=== PATIENT | female | born 1965 | race Caucasian/White ===

== ENCOUNTER → 2019-12-27 | Outpatient (CLI) | payer OTHER ==
[~2019-12-27] MED LIST: ASPIR 8181 M1 PO; CARDIZEM SR 60M60 MG PO; LIPITOR 20 MG T20 M1 PO
== END ==
LOC: SJCVCIMAG 10:18
DX: I65.23 Occlusion and stenosis of bilateral carotid arteries (principal); K55.1 Chronic vascular disorders of intestine; I70.90 Unspecified atherosclerosis; I71.4 Abdominal aortic aneurysm, without rupture; I10 Essential (primary) hypertension; J44.9 Chronic obstructive pulmonary disease, unspecified; F17.200 Nicotine dependence, unspecified, uncomplicated

== ENCOUNTER → 2020-01-04 | Outpatient (CLI) | payer OTHER ==
[~2020-01-04] VITALS: Ht 149.9 cm; Wt 41.8 kg
[2020-01-04 07:52] VITALS: BP 157/93
[2020-01-04 08:00] LABS: HEMATOCRIT 42.1 % (37.0-47.0); HEMOGLOBIN 14.2 gm/dL (12.0-15.0); MCH 30.5 pg (26.0-34.0); MCHC 33.7 g/dL (28.0-37.0); MCV 90.5 fL (80.0-100.0); RBC 4.65 mil/uL (4.20-5.00); RDW 13.1 % (10.5-14.5); WBC 7.9 thou/uL (4.0-11.0)
[2020-01-04 08:05] LABS: CALCIUM 9.5 mg/dL (8.5-10.1); CREATININE 0.9 mg/dL (0.6-1.0); POTASSIUM 4.6 mmol/L (3.5-5.1)
--- NOTE | 2020-01-04 08:57 | EKG ---
[facility] [place] [address] ELECTROCARDIOGRAM REPORT Name: MANUEL LARA Room #: REG [facility]#: [id number] Admission: 01/04/20 Attend Phys: Fran Ramirez MD, Discharge: Date of : 63 Report #: [id number] THIS REPORT FOR: cc: FREIDA - Vianca family physician/PCP FAM - No family physician/PCP Lasha Chavarria MD [facility] ~ THIS REPORT FOR: //name// [facility] Test Date: 2020-01-04 Test Time: 07:58:57 Pat Name: MANUEL LARA Department: Room: Gender: Pig Caster: Marizol COOPER : 1965 Requested By: Fran Ramirez Order Number: [id number] MD: Lasha Chavarria Measurements Intervals [place] Rate: 68 P: 87 OK: 147 QRS: 78 QRSD: 83 T: 75 QT: 393 QTc: 418 Interpretive Statements Sinus rhythm Normal tracing No previous ECG available for comparison Electronically Signed On 01-04-2020 8:56:15 CDT by Lasha Chavarria [email or web address] <ELECTRONICALLY SIGNED> By: Lasha Chavarria MD, FAC 01/04/20 [id number] Lasha Chavarria MD, [facility] /EPI
--- NOTE | 2020-01-04 11:23 | CATHLAB ---
[facility] [place] [address] INVASIVE PROCEDURE REPORT Name: MANUEL LARA [id number] Admission: 01/04/20 Attend Phys: Fran Ramirez MD, Discharge: Date of : 63 Report #: [id number] THIS REPORT FOR: cc: FAM - No family physician/PCP FAM - No family physician/PCP Fran Ramirez MD [facility] ~ APPROVED REPORT Study performed: 01/04/2020 09:09:09 Patient Details The patient is a 54 year-old female Event Personnel Fran Ramirez Advertising Inserter, Anjana Dee RN RN, Garima Brock RTR, Frantz Bonilla Roberta Monitor Procedures Performed Art Access - R femoral artery* Left Heart Cath w/or w/o Coronaries [id number] [facility] Renal Bilateral Peripheral Angiography [id number] CVRENALBIL Aortogram Abdominal Peripheral Angio 582606 Hemostasis w/ Mynx 40639 Initial Mod Sed Same Phys/QHP Gr5y [id number] 72461 Mod Sed Same Phys/QHP Ea 933104 Indication Chest pain Procedure Narrative The Right Groin^ was infiltrated with 1% Lidocaine subcutaneous anesthesia. A PINNACLE 6FR Sheath #[id number] sheath was inserted into the RFA 6F^. Coronary angiography was performed using coronary diagnostic catheters. The right coronary system was accessed and visualized with a 3DRC catheter. The left coronary system was accessed and visualized with a JL4 catheter. The left ventricle was accessed and visualized with a ANGLE PIG catheter. Left ventriculogram was performed in 30 degree projection. An aortogram of the abdominal aorta was performed. The patient tolerated the procedure well and there were no complications associated with the procedure. There was no hematoma. Intraoperative Conscious Sedation Sedation start time: 919 Case end Time: 949 Fentanyl 50 mcg Versed 1 mg [facility] [place] [address] INVASIVE PROCEDURE REPORT Name: MANUEL LARA Room #: [facility] Mace#: [id number] Admission: 01/04/20 Attend Phys: Fran Ramirez, Discharge: Date of : 63 Report #: [id number] Fluoro Time: 3.11 minutes Dose: DAP 852.00 cGycm2 93 mGy Contrast Type and Amount: 95 Hemodynamics The aortic pressure is 130/75 mmHg with a mean of 96 mmHg. The left ventricular pressure is 148/5 mmHg with a mean of mmHg. The left ventricular end diastolic pressure is 18 mmHg. Conclusion #1. Normal left jugular size and systolic function EF 60% #2 abdominal aorta is mildly plaqued there is distal aortic narrowing at the iliac bifurcation in the 50% range. #3 left main free of disease giving rise to LAD and circumflex #4 LAD is an eccentric proximal lesion of 30 to 40% off the left main and diffuse distal disease no occlusive disease #5 circumflex OM is a dominant system. There is diffuse distal disease and attenuated distal vessels but no occlusive disease #6 small nondominant right coronary artery no disease #7 bilateral renal arteries are single and mild ostial irregularity but no occlusive disease Recommendations and plan continue aggressive risk factor modification. Smoking cessation strongly recommended. Patient will be recovered and follow discharge protocol. Follow-up scheduled. <ELECTRONICALLY SIGNED> By: Fran Rmairez MD, [facility] 01/04/20 112 21 21 Fran Ramirez MD, FAC /INF
== END | disposition home or self-care (01) ==
LOC: CATH 07:04
PROVIDERS: Internal Medicine Cardiovascular Disease
DX: R07.9 Chest pain, unspecified (principal); I25.10 Atherosclerotic heart disease of native coronary artery without angina pectoris; I70.0 Atherosclerosis of aorta; I10 Essential (primary) hypertension; E78.00 Pure hypercholesterolemia, unspecified; J44.9 Chronic obstructive pulmonary disease, unspecified; I73.9 Peripheral vascular disease, unspecified; E78.5 Hyperlipidemia, unspecified; F17.210 Nicotine dependence, cigarettes, uncomplicated; Z98.890 Other specified postprocedural states; Z79.899 Other long term (current) drug therapy; Z82.49 Family history of ischemic heart disease and other diseases of the circulatory system; Z98.51 Tubal ligation status; Z79.82 Long term (current) use of aspirin